=== PATIENT | male | born 1980 | race Caucasian/White ===

== ENCOUNTER 2018-05-26 16:17 | Emergency (ER) | payer OTHER, SELFPAY ==
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
[2018-05-26] MEDS ORDERED: Sulfameth/Trimethoprim DS 800-160mg TAB ONE (17:23)
== END 2018-05-26 17:28 ==
LOC: NAV ERS 16:17
DX: R41.82 Altered mental status, unspecified (principal); L03.116 Cellulitis of left lower limb; F32.9 Major depressive disorder, single episode, unspecified; F41.9 Anxiety disorder, unspecified; F90.9 Attention-deficit hyperactivity disorder, unspecified type; F17.210 Nicotine dependence, cigarettes, uncomplicated
CPT/HCPCS: 70450; 72125; 80307